=== PATIENT | female | born 1990 | race Caucasian/White ===

== ENCOUNTER 2019-01-08 09:14 | Outpatient (CLI) | payer BC ==
[~2019-01-08] VITALS: Ht 160 cm; Wt 90.5 kg
== END 2019-01-08 11:59 | disposition home or self-care (01) ==
LOC: LDOP 09:14
PROVIDERS: ATTEND Obstetrics & Gynecology
DX: O26.899 Other specified pregnancy related conditions, unspecified trimester (principal); Z3A.00 Weeks of gestation of pregnancy not specified
CPT/HCPCS: 59025; 99201; G0463

== ENCOUNTER 2019-01-10 10:18 | Inpatient (IN) | payer BC ==
[~2019-01-10] VITALS: Ht 160 cm; Wt 90.0 kg
[2019-01-12 07:05] VITALS: BP 101/66
== END 2019-01-12 13:25 | disposition home or self-care (01) | DRG 788 ==
LOC: LDIP 10:18 → 2NW 15:17
PROVIDERS: ADMIT Obstetrics & Gynecology; ATTEND Obstetrics & Gynecology
PROC: 10D00Z1 Extraction of Products of Conception, Low, Open Approach (ICD-10-PCS; principal; 2019-01-10)
DX: O34.211 Maternal care for low transverse scar from previous cesarean delivery (principal); O99.824 Streptococcus B carrier state complicating childbirth; Z37.0 Single live birth; Z3A.39 39 weeks gestation of pregnancy; Z82.49 Family history of ischemic heart disease and other diseases of the circulatory system; Z83.3 Family history of diabetes mellitus; Z90.49 Acquired absence of other specified parts of digestive tract; O36.63X0 Maternal care for excessive fetal growth, third trimester, not applicable or unspecified
CPT/HCPCS: 36415; 85025; 86850; 86900; G0378; J0690; J1100; J1885; J2274; J2405; J3010; J2370; J2590; J2765; J7120